=== PATIENT | male | born 1935 | race Caucasian/White ===

== ENCOUNTER 2016-11-27 11:11 | Emergency (ER) | payer OTHER ==
--- NOTE | 2016-11-27 12:38 | DIAGNOSTIC IMAGING REPORT ---
PROCEDURE: XR CHEST 2 VIEW INDICATION: COUGH TECHNIQUE: PA and lateral views. COMPARISON: None. FINDINGS: Lungs are clear. Heart and mediastinum are normal. Thorax is normal. IMPRESSION: 1. Negative chest.
--- NOTE | 2016-11-27 14:32 | ED NURSING NOTES ---
Clinical Report - Nurses [facility] [address] [place] [address] 11/27/2016 11:15 Patient: SADA SEE TRIAGE Triage time 11:42. Acuity: LEVEL 3. Chief Complaint: WEAKNESS. 11:43 11/27/16. 11:43 11/27/16. Alert. No acute distress. ( Pt with weakness. This started Sunday. Pts daughter states that he has fallen 2 times since Sunday). SEPSIS SCREEN: Sepsis Screen: negative. Negative (no infection suspected/documented). Temperature greater than 38.3 degrees C (101 degrees F). Systolic blood pressure not less than 90. Mean arterial pressure not less than 65. MAXIM COMA SCORE: [place] Coma Scale: 15- eyes open spontaneously (4); best verbal response- oriented x 4 (5); best motor response- obeys commands (6). --11:49 Doug Tobin R.N. 11:42 11/27/16. BP: 160/74. HR: 93. RR: 18. O2 saturation: 98% on room air. Temp: 102 F (oral). --11:49 Doug Tobin R.N. Weight: 98.8 kg stated. Height/Length: 66 inches Per Patient. BMI: 35.2. --11:43 Doug Tobin R.N. Medications MetFORMIN HCl Oral 850 mg, 2x a day. --11:45 Doug Tobin R.N. ASA 81mg, daily. --11:46 Doug Tobin R.N. Lipitor Oral (Tablet 40 mg) 1 tablet, daily. --13:06 Doug Tobin R.N. B-12 Oral. --13:06 Doug Tobin R.N. Lisinopril Oral (Tablet 10 mg) 1 tablet, daily. --13:06 Doug Tobin R.N. Metoprolol Succinate ER Oral 50 mg, Daily. --13:07 Doug Tobin R.N. The following entry was struck and corrected by Doug Tobin R.N., 11:45 (11/27/16) Reason for correction - other(correction). <<STRICKEN ENTRY-- MetFORMIN HCl Oral 850 mg, daily. --11:45 Doug Tobin R.N. --END STRIKE>> The following entry was struck by Doug Tobin R.N., 11:45 (11/27/16) Reason - other. <<STRICKEN ENTRY-- Unknown. --11:45 Doug Tobin R.N. --END STRIKE>>. Medication/allergy information source: the patient and patient's family. --11:49 Doug Tobin R.N. Allergies None. --11:45 Doug Tobin R.N. History Arrived by private vehicle. Historian: patient. Accompanied by family. Primary physician ([facility]). 11:43 11/27/16. Onset. (SUNDAY). Treatment MARKETING PLANNER: None. PAST MEDICAL HX: Immunizations: up-to-date. SOCIAL HX: Never smoker. No infectious disease exposure. ABUSE ASSESSMENT: No report of abuse. NUTRITIONAL RISK ASSESSMENT: The nutritional risk assessment revealed no deficiencies. FUNCTIONAL ASSESSMENT: Functional assessment: no impairments noted. LEARNING NEEDS ASSESSMENT: The learning needs assessment revealed no barriers. FALL RISK ASSESSMENT: Fall risk assessment completed. Risk factors identified include patient history of fall. SKIN INTEGRITY ASSESSMENT: Skin integrity risk assessment completed. No skin integrity risk identified. --11:49 Doug Tobin R.N. PROBLEMS: Hypercholesterolemia. Hypertension. Diabetes Mellitus. --11:47 Doug Tobin R.N. Fall. --11:49 Doug Tobin R.N. ADDITIONAL SURGERIES: Cataract Surgery. Right Leg Surgery. Shoulder Surgery. --11:47 Doug Tobin R.N. Neck Surgery. --11:49 Doug Tobin R.N. Assessment 11:43 11/27/16. --11:49 Doug Tobin R.N. Interventions 11:43 11/27/16. 11:43 11/27/16. ID and allergy band on patient. To treatment room. --11:49 Doug Tobin R.N. PHYSICAL ASSESSMENT 11:48 11/27/16. To room via wheelchair. GENERAL / NEURO / PSYCH: Alert. Oriented X 4. RESPIRATORY: Respirations not labored. CVS: Normal sinus rhythm noted. SKIN: Skin is warm and dry. --11:48 Doug Tobin R.N. NURSING PROGRESS NOTES 11:48 11/27/16. The plan of care for this patient has been created. phototypesetting equipment monitor, pulse oximeter and NIBP monitor placed on patient; monitor alarms on. Patient gowned. Head of bed elevated. Two patient identifiers checked. Call light placed in reach. Side rails up x 2. Bed placed in lowest position. Brakes of bed on. Brakes of chair on. --11:48 Doug Tobin R.N. 11:48 11/27/16. Patient ready for evaluation- chart flagged and notification provided. --11:48 Doug Tobin R.N. 12:11/27/2016 Site #1 started via IV in the right forearm with an 20g angiocath, with aseptic technique and good blood return; one attempt. Blood drawn: rainbow set. Labeled in the presence of the patient and sent to the lab. Saline lock flushed with 10 mL saline. --12:05 Doug Tobin R.N. 12:11/27/2016 Started bag #1 1000 mL IV Fluids IV NS (Saline); at 1000 mL/hr over 1 hour(s) via site #1. Allergies verified and confirmed 5 rights. IV patency established. IV site checked: no pain, redness, or swelling. IV flushed thoroughly pre- and post-medication administration. Completed per protocol. --12:05 Doug Tobin R.N. 12:30 11/27/16. Influenza A postive. ED physician notifed of critical value. --12:30 Doug Tobin R.N. 12:32 11/27/16. Cardiac rhythm: normal sinus rhythm. --12:32 Doug Tobin R.N. 12:31 11/27/16. BP: 162/65. HR: 83. RR: 20. O2 saturation: 97% on room air. --12:32 Doug Tobin R.N. 12:32 11/27/16. ( Pt has been masked during ER visit). --12:33 Doug Tobin R.N. 12:35 11/27/2016 IV Fluids IV NS Discontinued: bag #1 infused. Total amount infused: 1 Liter mL. IV patency established. IV site checked: no pain, redness, or swelling. IV flushed thoroughly. --12:35 Doug Tobin R.N. 12:35 11/27/16. Finger stick glucose: 139 mg/dL; ordered; performed by nurse. --12:35 Doug Tobin R.N. 12:58 11/27/2016 Started bag #2 1000 mL IV Fluids IV NS (Saline); at 1000 mL/hr over 1 hour(s) via site #1. Allergies verified and confirmed 5 rights. IV patency established. IV site checked: no pain, redness, or swelling. IV flushed thoroughly pre- and post-medication administration. Completed per protocol. --12:58 Doug Tobin R.N. 12:58 11/27/2016 Tylenol (Acetaminophen) PO 650 mg given. Allergies verified and confirmed 5 rights. --12:58 Doug Tobin R.N. 12:58 11/27/2016 Toradol IVP 30 mg given over 2 minute(s) via site #1. Allergies verified and confirmed 5 rights. IV patency established. IV site checked: no pain, redness, or swelling. IV flushed thoroughly pre- and post-medication administration. IVP given by RN. --12:58 Doug Tobin R.N. 12:58 11/27/16. BP: 155/66. HR: 77. RR: 20. O2 saturation: 96% on room air. --12:59 Doug Tobin R.N. 12:59 11/27/16. Cardiac rhythm: normal sinus rhythm. --12:59 Doug Tobin R.N. 13:45 11/27/16. BP: 147/66. HR: 75. RR: 20. O2 saturation: 98% on room air. Temp: 100.5 F (oral). --13:46 Doug Tobin R.N. 13:46 11/27/16. Cardiac rhythm: normal sinus rhythm. --13:46 Doug Tobin R.N. 13:47 11/27/2016 IV Fluids IV NS Discontinued: bag #2 infused. Total amount infused: 1 Liter mL. IV patency established. IV site checked: no pain, redness, or swelling. IV flushed thoroughly. --13:47 Doug Tobin R.N. 14:44 11/27/2016 Tamiflu * PO 75 mg --14:44 Doug Tobin R.N. DISPOSITION / DISCHARGE 14:49 11/27/2016 Site #1 removed upon discharge. Catheter intact. --14:49 Doug Tobin R.N. 14:49 11/27/16. Cardiac rhythm: normal sinus rhythm. Condition at departure: improved. The goals identified in the patient's plan of care were met. No learning barriers present. Discharge instructions provided and reviewed with the patient and family. Reviewed warnings. Reviewed medication(s). Treatments reviewed. Patient and family verbalized understanding. Written instructions provided in Telugu. The patient was discharged by the physician. He was discharged home and accompanied by family. He left the Emergency Department in a wheelchair and via private vehicle. Family member driving. FALL RISK ASSESSMENT: Fall risk assessment completed. No fall risk identified. --14:49 Doug Tobin R.N. 14:48 11/27/16. BP: 122/60. HR: 78. RR: 18. O2 saturation: 99% on room air. Temp: 99.3 F (oral). --14:49 Doug Tobin R.N. Departure time: 14:59. --14:59 Doug Tobin R.N. Locked/Released at 11/27/2016 16:06 by Doug Tobin R.N.
--- NOTE | 2016-11-27 14:32 | ED CLINICAL REPORT ---
Clinical Report - Physicians/Mid Levels [facility] [address] [place] [address] 11/27/2016 11:15 Patient: SADA SEE Arrived- By private vehicle. Historian- patient. HISTORY OF PRESENT ILLNESS Chief Complaint: COUGH, FEVER, CHILLS and MUSCLE ACHES. This started past few days and is still present (staying the same). It was gradual in onset and has been constant but is not gone now. The illness is described as moderate. The patient has had sputum production, a cough, nasal congestion, fever and chills. He has had muscle aches and a nasal discharge. Additional history - The patient has had contact with a sick individual. No recent travel. Similar symptoms previously: None. Recent medical care: Not recently seen/assessed. REVIEW OF SYSTEMS No pedal edema or skin rash. All systems otherwise negative, except as recorded above. PAST HISTORY See nurses notes. Medications: Metoprolol Succinate ER Oral 50 mg, Daily. Lisinopril Oral (Tablet 10 mg) 1 tablet, daily. B-12 Oral. Lipitor Oral (Tablet 40 mg) 1 tablet, daily. ASA 81mg, daily. MetFORMIN HCl Oral 850 mg, 2x a day. Allergies: None. SOCIAL HISTORY Never smoker. Not exposed to second-hand smoke at home. No alcohol use or drug use. No recent travel. Is a local resident. ADDITIONAL NOTES The nursing notes have been reviewed. PHYSICAL EXAM Vital Signs: 11/27/2016 11:42 BP: 160/74. HR: 93. RR: 18. O2 saturation: 98%. Temp: 102 F. Blood pressure normal. Oxygen saturation normal. Appearance: Alert. No acute distress. (Nontoxic appearing). Eyes: Pupils equal, round and reactive to light. Eyes normal inspection. ENT: Ears normal. Nose normal. Dry mucous membranes present. Pharynx normal. Uvula midline. No mouth ulcerations, peritonsillar mass, trismus or trouble handling secretions. Neck: Normal inspection. Neck supple. CVS: Normal heart rate and rhythm. Heart sounds normal. Pulses normal. Respiratory: No respiratory distress. No respiratory distress. Breath sounds normal. No rales, rhonchi, wheezes or stridor. Abdomen: Soft and nontender. No organomegaly. Skin: Skin warm and dry. Normal skin color. No rash. Normal skin turgor. Extremities: Extremities exhibit normal ROM. No lower extremity edema. LABS, X-RAYS, AND EKG Chest X-ray: (PROCEDURE: XR CHEST 2 VIEW INDICATION: COUGH TECHNIQUE: PA and lateral views. COMPARISON: None. FINDINGS: Lungs are clear. Heart and mediastinum are normal. Thorax is normal. IMPRESSION: 1. Negative chest.). Laboratory Tests: Rapid Influenza Screen: (OBDULIO: 11/27/2016 12:00) ( [id number] 11/27/2016 12:25) Final results SPECIMEN DESCRIPTION: MUCUS Test Result Flag Units (Reference) RAPID INFLUENZA SCREEN CALLED TO: JAN BAILEY RN -- DATE: 11/27/16 INFLUENZA A: POSITIVE SCREEN FOR INFLUENZA A INFLUENZA B: NEGATIVE SCREEN FOR INFLUENZA B . PROGRESS AND PROCEDURES Course of Care: the patient is an 81-year-old male presenting for evaluation of signs and symptoms that are consistent with a upper respiratory tract infection. At this time differential diagnosis includes flu, other viral upper respiratory tract infection or pneumonia. Patient will be evaluated with chest x-ray and rapid flu. Vital signs are unremarkable here in the emergency department. No signs of hypoxia. No tachycardia. And blood pressure is within normal limits. Patient is agreeable to the treatment and plan. Workup shows patient to be positive for influenza type A. Patient is a candidate for Tamiflu. Had discussed with patient his chest x-rays does not show any signs of consolidation. Patient appears nontoxic and is in no acute distress. Patient is a good outpatient candidate. Medications for the flu have been provided here in the emergency department per CDC guidelines. On repeat examination, patient continues to be nontoxic and in no acute distress. Discussed with patient workup, diagnosis, home care, follow-up, and return precautions. All questions answered. The patient expressed understanding of these instructions and was agreeable to them. Disposition: Discharged. Condition: good. CLINICAL IMPRESSION Mild dehydration (acute). Acute influenza A upper respiratory infection. INSTRUCTIONS Warnings: GENERAL WARNINGS: Return or contact your physician immediately if your condition worsens or changes unexpectedly, if not improving as expected, or if other problems arise. Specifically return if pain, vomiting, bleeding, breathing difficulty or fever. Your Current Medications: CONTINUE TAKING THE FOLLOWING MEDICATIONS: ASA* : 81mg daily. B-12 Oral. Lipitor Oral : Tablet 40 mg, 1 tablet daily. Lisinopril Oral : Tablet 10 mg, 1 tablet daily. MetFORMIN HCl Oral : 850 mg 2x a day. Metoprolol Succinate ER Oral : 50 mg Daily. Prescription Medications: Tamiflu 75 mg: take 1 capsule orally every 12 hours for 10 days. No refill. Substitution is permissible. OTC Medications: Acetaminophen (available over the counter): take according to label instructions. Motrin (available over the counter): take according to label instructions. Follow-up: Return to the emergency department as needed. Follow up with your doctor in two days. Reason for referral: recheck today's concerns. Summary of care provided to patient and family via paper. Screening today revealed the patient's blood pressure to be in the normal range. The patient should follow up with a primary care provider for blood pressure management. Understanding of the discharge instructions verbalized by patient and family. (Electronically signed by Calos Ellison Dr. 11/29/2016 19:05)
--- NOTE | 2016-11-27 14:32 | ED ORDER SUMMARY ---
..... Patient: SADA SEE OrderSheet [facility] VisitID: [id number] [place] [address] 81y, M Registration Date/Time: 11/27/2016 ORDER SHEET Weight: 98.8 kg (stated) Allergies: None GENERAL ORDERS: Chest 2V Urgent (12:02 11/27/2016 Ranjit Bedoya) (12:19 LTapper) Rapid Influenza Screen (Nasal Pharyngeal) (mucus) Urgent (12:02 11/27/2016 Ranjit Bedoya) (Ack 12:19 LTapper) (12:22 JBoardley R.N.) POC Glucose (12:35 11/27/2016 JBoardley R.N. per protocol) (12:35 JBoardley R.N.) MEDICATION ORDERS: Tylenol PO 650 mg (NOW) (12:44 11/27/2016 Ranjit Bedoya) (Ack 12:45 JBoardley R.N.) (12:58 JBoardley R.N.) - (Tamiflu 75 mg cap once PO now) (14:33 11/27/2016 Ranjit Bedoya) (Ack 14:39 JBoardley R.N.) (14:44 JBoardley R.N.) IV FLUIDS: IV NS : initial bolus none -, then 1000 mL/hr for X1 (NOW); Routine (12:04 11/27/2016 María R.N. per protocol) (12:05 JBoardley R.N.) IV NS : initial bolus 1000 mL (1000 mL/hr), then none - for X1 (NOW) (12:44 11/27/2016 Ranjit Bedoya) (Ack 12:45 JBoardley R.N.) (12:58 JBoardley R.N.) Toradol IV 30 mg (NOW) (12:44 11/27/2016 Ranjit Bedoya) (Ack 12:45 JBoardley R.N.) (12:58 JBoardley R.N.) ORDER SHEET NOTES: [Electronically signed by Doug Tobin R.N. (16:06 11/27/2016)] [Electronically signed by Calos Ellison Dr. (19:04 11/29/2016)] [Electronically locked/signed by Doug Tobin R.N. (16:06 11/27/2016)]
--- NOTE | 2016-11-27 14:32 | ED ORDER SUMMARY ---
..... Patient: SADA SEE OrderSheet [facility] VisitID: [id number] [place] [address] 81y, M Registration Date/Time: 11/27/2016 ORDER SHEET Weight: 98.8 kg (stated) Allergies: None GENERAL ORDERS: Chest 2V Urgent (12:02 11/27/2016 Ranjit Bedoya) (12:19 LTapper) Rapid Influenza Screen (Nasal Pharyngeal) (mucus) Urgent (12:02 11/27/2016 Ranjit Bedoya) (Ack 12:19 LTapper) (12:22 JBoardley R.N.) POC Glucose (12:35 11/27/2016 JBoardley R.N. per protocol) (12:35 JBoardley R.N.) MEDICATION ORDERS: Tylenol PO 650 mg (NOW) (12:44 11/27/2016 Ranjit Bedoya) (Ack 12:45 JBoardley R.N.) (12:58 JBoardley R.N.) - (Tamiflu 75 mg cap once PO now) (14:33 11/27/2016 Ranjit Bedoya) (Ack 14:39 JBoardley R.N.) (14:44 JBoardley R.N.) IV FLUIDS: IV NS : initial bolus none -, then 1000 mL/hr for X1 (NOW); Routine (12:04 11/27/2016 María R.N. per protocol) (12:05 JBoardley R.N.) IV NS : initial bolus 1000 mL (1000 mL/hr), then none - for X1 (NOW) (12:44 11/27/2016 Ranjit Bedoya) (Ack 12:45 JBoardley R.N.) (12:58 JBoardley R.N.) Toradol IV 30 mg (NOW) (12:44 11/27/2016 Ranjit Bedoya) (Ack 12:45 JBoardley R.N.) (12:58 JBoardley R.N.) ORDER SHEET NOTES: [Electronically signed by Doug Tobin R.N. (16:06 11/27/2016)] [Electronically signed by Calos Ellison Dr. (19:04 11/29/2016)] [Electronically locked/signed by Doug Tobin R.N. (16:06 11/27/2016)]
--- NOTE | 2016-11-29 19:05 | ED MAR SUMMARY ---
..... Medication Administration Record [facility] [address] [place] [place] [address] Patient: SADA SEE Visit ID: [id number] 81y, M Weight: 98.8 kg Height/Length: 66 in BMI: 35.2 ALLERGIES: None Start 12:05 11/27/2016 Doug Tobin R.N., Stop 12:35 11/27/2016 Doug Tobin R.N. Medication Administered: IV NS (SALINE), Dose: IV Fluids over 1 hour(s), Rate: 1000 mL/hr, Dispensed: 1000 mL bag, Site: #1 right forearm. Medication Ordered: IV NS : initial bolus none -, then 1000 mL/hr for X1 (NOW); Routine. Start 12:58 11/27/2016 Doug Tobin R.N., Stop 13:47 11/27/2016 Doug Tobin R.N. Medication Administered: IV NS (SALINE), Dose: IV Fluids over 1 hour(s), Rate: 1000 mL/hr, Dispensed: 1000 mL bag, Site: #1 right forearm. Medication Ordered: IV NS : initial bolus 1000 mL (1000 mL/hr), then none - for X1 (NOW). Given 12:58 11/27/2016 Doug Tobin R.N. Medication Administered: TYLENOL [PO] (ACETAMINOPHEN), Dose: 650 mg PO. Medication Ordered: Tylenol PO 650 mg (NOW). Given 12:58 11/27/2016 Doug Tobin R.N. Medication Administered: TORADOL [IVP], Dose: 30 mg IVP over 2 minute(s), Site: #1 right forearm. Medication Ordered: Toradol IV 30 mg (NOW). Given 14:44 11/27/2016 Doug Tobin R.N. Medication Administered: Tamiflu *, Dose: 75 mg * PO. Medication Ordered: - (Tamiflu 75 mg cap once PO now).
--- NOTE | 2016-11-29 19:05 | ED DISCHARGE INSTRUCTIONS ---
Patient: SADA SEE General Instructions [facility] VisitID: [id number] [place] [address] 81y, M Registration Date/Time: 11/27/2016 Mild dehydration (acute). Acute influenza A upper respiratory infection. INSTRUCTIONS Warnings: GENERAL WARNINGS: Return or contact your physician immediately if your condition worsens or changes unexpectedly, if not improving as expected, or if other problems arise. Specifically return if pain, vomiting, bleeding, breathing difficulty or fever. Your Current Medications: CONTINUE TAKING THE FOLLOWING MEDICATIONS: ASA* : 81mg daily. B-12 Oral. Lipitor Oral : Tablet 40 mg, 1 tablet daily. Lisinopril Oral : Tablet 10 mg, 1 tablet daily. MetFORMIN HCl Oral : 850 mg 2x a day. Metoprolol Succinate ER Oral : 50 mg Daily. Prescription Medications: Tamiflu 75 mg: take 1 capsule orally every 12 hours for 10 days. No refill. Substitution is permissible. OTC Medications: Acetaminophen (available over the counter): take according to label instructions. Motrin (available over the counter): take according to label instructions. Follow-up: Return to the emergency department as needed. Follow up with your doctor in two days. Reason for referral: recheck today's concerns. Summary of care provided to patient and family via paper. Screening today revealed the patient's blood pressure to be in the normal range. The patient should follow up with a primary care provider for blood pressure management. Understanding of the discharge instructions verbalized by patient and family. ADDITIONAL INFORMATION Viral Respiratory Illness [Adult] You have an Upper Respiratory Illness (URI) caused by a virus. This illness is contagious during the first few days. It is spread through the air by coughing and sneezing or by direct contact (touching the sick person and then touching your own eyes, nose or mouth). Most viral illnesses go away within 7-10 days with rest and simple home remedies. Sometimes, the illness may last for several weeks. Antibiotics will not kill a virus and are generally not prescribed for this condition. Home Care: 1) If symptoms are severe, rest at home for the first 2-3 days. When you resume activity, don't let yourself get too tired. 2) Avoid being exposed to cigarette smoke (yours or others). 3) Tylenol (acetaminophen) or ibuprofen (Advil, Motrin) will help fever, muscle aching and headache. (Persons under 18 with fever should not take aspirin since this may cause liver damage.) 4) Your appetite may be poor, so a light diet is fine. Avoid dehydration by drinking 6-8 glasses of fluids per day (water, soft drinks, juices, tea, soup). Extra fluids will help loosen secretions in the nose and lungs. 5) [id number] cold medicines will not shorten the length of time youre sick, but they may be helpful for the following symptoms: cough (Robitussin DM); sore throat (Chloraseptic lozenges or spray); nasal and sinus congestion (Actifed, Sudafed, Chlortrimeton). Follow Up with your doctor or as advised if you dont improve over the next week. Get Prompt Medical Attention if any of the following occur: -- Cough with lots of colored sputum (mucus) or blood in your sputum -- Chest pain, shortness of breath, wheezing or have trouble breathing -- Severe headache; face, neck or ear pain -- Fever over 100.4 F (38.0 C) for more than three days -- You cant swallow due to throat pain Dehydration (Adult) Dehydration occurs when your body loses too much fluid. This may be the result of vomiting a lot or from diarrhea,sweating a lot, or a high fever. It may also happen if you dont drink enough fluid when youre sick. Misuse of diuretics (water pills) can also be a cause. Symptoms include thirst and feeling dizzy, weak, fatigued, or very drowsy. The diet described below is usually enough to treat most cases. Sometimes you may needmedicine. Home Care Follow these guidelines for home care: Drink at least 12 8-ounce glasses of fluid every day to overcome the dehydration. Fluid may include water; orange juice; lemonade; apple, grape, and cranberry juice; clear fruit drinks; electrolyte replacement and sports drinks; and teas and coffee without caffeine. If you have been diagnosed with a kidney disease, ask your doctor how much and what types of fluids you should drink to prevent dehydration. If you have kidney disease, drinking too much fluid can cause it build up in the your body and be dangerous to your health. If you have fever, muscle aching, or headache from a viral syndrome, you may useacetaminophen or ibuprofen, unless another medicine was prescribed for this.If you have chronic liver or kidney disease or ever had a stomach ulcer or GI bleeding, talk with your doctor before using these medicines. Don't take aspirin if you are younger than 18 and are ill with a fever.Aspirin raises the chance forsevere liver injury. Follow-up care Follow up with your health care provider if you don't get better in the next 24 to 48 hours. When to seek medical care Get prompt medical attention if any of theseoccur: Continued vomiting (cant keep liquids down) Frequent diarrhea (more than 5 times a day); blood (red or black color) or mucus in diarrhea Blood in vomit or stool Swollen abdomen or increasing abdominal pain Weakness, dizziness, or fainting Unusually drowsy or confused Reduced urine output or extreme thirst Fever of 100.4 F (38 C) oral or higher that does not get better with fever medication Oseltamivir Phosphate Oral capsule What is this medicine? OSELTAMIVIR (os el BRIAN i vir) is an antiviral medicine. It is used to prevent and to treat some kinds of influenza or the flu. It will not work for colds or other viral infections. How should I use this medicine? Take this medicine by mouth with a glass of water. Follow the directions on the prescription label. Start this medicine at the first sign of flu symptoms. You can take it with or without food. If it upsets your stomach, take it with food. Take your medicine at regular intervals. Do not take your medicine more often than directed. Take all of your medicine as directed even if you think you are better. Do not skip doses or stop your medicine early. Talk to your deliverer merchandise regarding the use of this medicine in children. While this drug may be prescribed for children as young as 14 days for selected conditions, precautions do apply. What side effects may I notice from receiving this medicine? Side effects that you should report to your doctor or health geriatric personal care aide as soon as possible: allergic reactions like skin rash, itching or hives, swelling of the face, lips, or tongue anxiety, confusion, unusual behavior breathing problems hallucination, loss of contact with reality redness, blistering, peeling or loosening of the skin, including inside the mouth seizures Side effects that usually do not require medical attention (report to your doctor or health geriatric personal care aide if they continue or are bothersome): cough diarrhea dizziness headache nausea, vomiting stomach pain What may interact with this medicine? Interactions are not expected. What if I miss a dose? If you miss a dose, take it as soon as you remember. If it is almost time for your next dose (within 2 hours), take only that dose. Do not take double or extra doses. Where should I keep my medicine? Keep out of the reach of children. Store at room temperature between 15 and 30 degrees C (59 and 86 degrees F). Throw away any unused medicine after the expiration date. What should I tell my health care provider before I take this medicine? They need to know if you have any of the following conditions: heart disease immune system problems kidney disease liver disease lung disease an unusual or allergic reaction to oseltamivir, other medicines, foods, dyes, or preservatives or trying to get breast-feeding What should I watch for while using this medicine? Visit your doctor or health geriatric personal care aide for regular check ups. Tell your doctor if your symptoms do not start to get better or if they get worse. If you have the flu, you may be at an increased risk of developing seizures, confusion, or abnormal behavior. This occurs early in the illness, and more frequently in children and teens. These events are not common, but may result in accidental injury to the patient. Families and caregivers of patients should watch for signs of unusual behavior and contact a doctor or health geriatric personal care aide right away if the patient shows signs of unusual behavior. This medicine is not a substitute for the flu shot. Talk to your doctor each year about an annual flu shot. You have been given the following additional information: Uri, Viral, No Abx (Adult) Dehydration (Adult) Oseltamivir Phosphate Oral capsule (Electronically signed by Calos Ellison Dr. 11/29/2016 19:05)
--- NOTE | 2016-11-29 19:05 | ED MED RECONCILIATION SUMMARY ---
Patient: SADA SEE Medication Reconciliation Report [facility] VisitID: [id number] [place] [address] 81y, M Registration Date/Time: 11/27/2016 Weight: 98.8 kg Height/Length: 66 in. BMI: 35.2 ALLERGIES: None The patient's Home Medications are listed below: CONTINUE TAKING THE FOLLOWING MEDICATIONS: ASA 81mg, daily B-12 Oral Lipitor Oral (40 mg) 1 tablet, daily Lisinopril Oral (10 mg) 1 tablet, daily MetFORMIN HCl Oral 850 mg, 2x a day Metoprolol Succinate ER Oral 50 mg, Daily The source(s) of the original Home Medication information: patient patient's family member The following Medications were given to the patient in the Emergency Department: IV NS IV Fluids bolus 0, then 1000 mL/hr, administered: 11/27/2016 12:05:00 PM IV NS IV Fluids bolus 0, then 1000 mL/hr, administered: 11/27/2016 12:58:00 PM Tylenol [PO] PO 650 mg, administered: 11/27/2016 12:58:00 PM Toradol [IVP] IVP 30 mg, administered: 11/27/2016 12:58:00 PM Tamiflu PO 75 mg, administered: 11/27/2016 2:44:00 PM The following Medications were prescribed to the patient: Acetaminophen (available over the counter): take according to label instructions. -- Calos Ellison Dr. Motrin (available over the counter): take according to label instructions. -- Calos Ellison Dr. Tamiflu 75 mg: take 1 capsule orally every 12 hours for 10 days. No refill. Substitution is permissible. -- Calos Ellison Dr.
--- NOTE | 2016-11-29 19:05 | ED MED RECONCILIATION SUMMARY ---
Patient: SADA SEE Medication Reconciliation Report [facility] VisitID: [id number] [place] [address] 81y, M Registration Date/Time: 11/27/2016 Weight: 98.8 kg Height/Length: 66 in. BMI: 35.2 ALLERGIES: None The patient's Home Medications are listed below: CONTINUE TAKING THE FOLLOWING MEDICATIONS: ASA 81mg, daily B-12 Oral Lipitor Oral (40 mg) 1 tablet, daily Lisinopril Oral (10 mg) 1 tablet, daily MetFORMIN HCl Oral 850 mg, 2x a day Metoprolol Succinate ER Oral 50 mg, Daily The source(s) of the original Home Medication information: patient patient's family member The following Medications were given to the patient in the Emergency Department: IV NS IV Fluids bolus 0, then 1000 mL/hr, administered: 11/27/2016 12:05:00 PM IV NS IV Fluids bolus 0, then 1000 mL/hr, administered: 11/27/2016 12:58:00 PM Tylenol [PO] PO 650 mg, administered: 11/27/2016 12:58:00 PM Toradol [IVP] IVP 30 mg, administered: 11/27/2016 12:58:00 PM Tamiflu PO 75 mg, administered: 11/27/2016 2:44:00 PM The following Medications were prescribed to the patient: Acetaminophen (available over the counter): take according to label instructions. -- Calos Ellison Dr. Motrin (available over the counter): take according to label instructions. -- Calos Ellison Dr. Tamiflu 75 mg: take 1 capsule orally every 12 hours for 10 days. No refill. Substitution is permissible. -- Calos Ellison Dr.
--- NOTE | 2016-11-29 19:05 | ED MAR SUMMARY ---
..... Medication Administration Record [facility] [address] [place] [address] Patient: SADA SEE Visit ID: [id number] 81y, M Weight: 98.8 kg Height/Length: 66 in BMI: 35.2 ALLERGIES: None Start 12:05 11/27/2016 Doug Tobin R.N., Stop 12:35 11/27/2016 Doug Tobin R.N. Medication Administered: IV NS (SALINE), Dose: IV Fluids over 1 hour(s), Rate: 1000 mL/hr, Dispensed: 1000 mL bag, Site: #1 right forearm. Medication Ordered: IV NS : initial bolus none -, then 1000 mL/hr for X1 (NOW); Routine. Start 12:58 11/27/2016 Doug Tobin R.N., Stop 13:47 11/27/2016 Doug Tobin R.N. Medication Administered: IV NS (SALINE), Dose: IV Fluids over 1 hour(s), Rate: 1000 mL/hr, Dispensed: 1000 mL bag, Site: #1 right forearm. Medication Ordered: IV NS : initial bolus 1000 mL (1000 mL/hr), then none - for X1 (NOW). Given 12:58 11/27/2016 Doug Tobin R.N. Medication Administered: TYLENOL [PO] (ACETAMINOPHEN), Dose: 650 mg PO. Medication Ordered: Tylenol PO 650 mg (NOW). Given 12:58 11/27/2016 Doug Tobin R.N. Medication Administered: TORADOL [IVP], Dose: 30 mg IVP over 2 minute(s), Site: #1 right forearm. Medication Ordered: Toradol IV 30 mg (NOW). Given 14:44 11/27/2016 Doug Tobin R.N. Medication Administered: Tamiflu *, Dose: 75 mg * PO. Medication Ordered: - (Tamiflu 75 mg cap once PO now).
== END 2016-11-27 14:59 | disposition home or self-care (01) ==
LOC: ED SRH 11:11
DX: J10.1 Influenza due to other identified influenza virus with other respiratory manifestations (principal); E86.0 Dehydration; E11.9 Type 2 diabetes mellitus without complications; Z79.84 Long term (current) use of oral hypoglycemic drugs; Z79.899 Other long term (current) drug therapy; Z79.82 Long term (current) use of aspirin
CPT/HCPCS: 91400